=== PATIENT | female | born 1990 | race Two or more races ===

== ENCOUNTER 2017-10-19 18:02 | Inpatient (IN) | payer OTHER ==
[~2017-10-19] VITALS: Ht 292.1 cm; Wt 81.6 kg
[2017-11-02] MEDS ORDERED: PRENATAL FORMU1 EAC1 PO (21:51)
[2017-11-06] MEDS ORDERED: PERCOCET 5-3251 EACH PO (08:07)
== END 2017-11-06 16:56 | disposition home or self-care (01) | DRG 766 ==
LOC: LDR 11-02 17:47 → OB/GYN 11-02 21:20 → LDR 11-02 21:50 → OB/GYN 11-03 19:55
PROVIDERS: Obstetrics & Gynecology
PROC: 3E0P7VZ Introduction of Hormone into Female Reproductive, Via Natural or Artificial Opening (ICD-10-PCS; 2017-11-03)
PROC: 3E033VJ Introduction of Other Hormone into Peripheral Vein, Percutaneous Approach (ICD-10-PCS; 2017-11-03)
PROC: 4A1HXCZ Monitoring of Products of Conception, Cardiac Rate, External Approach (ICD-10-PCS; 2017-11-03)
PROC: 10D00Z1 Extraction of Products of Conception, Low, Open Approach (ICD-10-PCS; principal; 2017-11-03 17:00)
DX: O62.0 Primary inadequate contractions (principal); O99.824 Streptococcus B carrier state complicating childbirth; Z3A.39 39 weeks gestation of pregnancy; Z37.0 Single live birth